=== PATIENT | female | born 1980 | race Caucasian/White ===

== ENCOUNTER 2019-04-14 15:15 | Inpatient (IN) | payer OTHER ==
[2019-04-14] MEDS ORDERED: CEFAZOLIN 2 GM/50 ML (PMX) 50 ML IVPB (16:00)
[2019-04-14] MEDS ORDERED: MISOPROSTOL 200 MCG TAB PR ×2 (16:00→20:30)
[2019-04-14] MEDS ORDERED: METHYLERGONOVINE 0.2 MG INJ IM ×2 (16:00→20:30)
[2019-04-14] MEDS ORDERED: OXYTOCIN 30 UNITS/LR 500 ML IV (16:00)
[2019-04-14] MEDS ORDERED: CARBOPROST 250 MCG INJ IM ×2 (16:00→20:30)
[2019-04-14 17:04] LABS: ADD MAN DIFF? NO
[2019-04-14 17:06] LABS: WHITE BLOOD COUNT 9.5 10^3/ul (4.8-10.8)
[2019-04-14 17:06] LABS: BASOPHILS % 0.3 % (0.0-2.0); EOSINOPHILS % 0.2 % (0.0-7.0); HEMOGLOBIN 13.7 g/dl (12.0-16.0); LYMPHOCYTES # 1.2 10^3/ul (0.8-2.9); LYMPHOCYTES % 12.8 % (15.0-51.0); MEAN CORPUSCULAR HEMOGLOBIN 32.5 pg (29.0-33.0); MEAN CORPUSCULAR HGB CONC 34.3 g/dl (32.0-37.0); MEAN CORPUSCULAR VOLUME 94.8 fl (82.0-101.0); MEAN PLATELET VOLUME 9.7 fl (7.4-10.4); MONOCYTE # 0.5 10^3/ul (0.3-0.9); MONOCYTES % 5.1 % (0.0-11.0); NEUTROPHIL # 7.4 10^3/ul (1.6-7.5); NEUTROPHILS % 77.5 % (39.0-77.0); PLATELET COUNT 191 10^3/UL (140-415); RED BLOOD COUNT 4.22 10^6/ul (4.20-5.40)
[2019-04-14] MEDS: LACTATED RINGER'S 1,000 ML IV (17:22)
[2019-04-14 17:27] LABS: INR 0.97
[2019-04-14 17:28] LABS: PARTIAL THROMBOPLASTIN TIME 30.4 Sec (23.0-35.0)
[2019-04-14] MEDS ORDERED: KETOROLAC 30 MG INJ IV (18:00)
[2019-04-14] MEDS ORDERED: FENTAnyl 2MCG/ML-ROPIV 0.2% 100 ML BAG EPI (18:00)
[2019-04-14] MEDS ORDERED: NALOXONE (0.4 MG/ML) INJ IV (18:00)
[2019-04-14] MEDS ORDERED: ALBUTEROL 0.083% (NEB) 2.5 MG/3 ML AMP HHN (18:00)
[2019-04-14] MEDS ORDERED: ONDANSETRON 4 MG INJ IV ×2 (18:00)
[2019-04-14] MEDS ORDERED: HYDROmorphONE 0.5 MG/0.5 ML SYG IV ×2 (18:00)
[2019-04-14] MEDS ORDERED: HYDROmorphONE 1 MG/5 ML IV SYRINGE IV ×2 (18:00)
[2019-04-14] MEDS ORDERED: FENTAnyl 50 MCG/ML VIAL IV ×2 (18:00)
[2019-04-14] MEDS ORDERED: METOCLOPRAMIDE 10 MG INJ IV (18:00)
[2019-04-14] MEDS ORDERED: DIPHENHYDRAMINE 50 MG INJ IV ×2 (18:00)
[2019-04-14] MEDS ORDERED: morphine SULFATE/PF (10 MG/10 ML) INJ (18:01)
[2019-04-14] MEDS ORDERED: EPHEDrine 25 MG/5 ML SYG (18:01)
[2019-04-14] MEDS ORDERED: PHENYLephrine (100 MCG/ML) 10ML SYG (18:01)
[2019-04-14] MEDS ORDERED: OXYTOCIN 30 UNITS/LR 500 ML BAG IV (18:01)
[2019-04-14] MEDS: KETOROLAC 30 MG INJ IV (19:28)
[2019-04-14] MEDS: OXYTOCIN 30 UNITS/LR 500 ML IV ×2 (19:30→23:17)
[2019-04-14] MEDS ORDERED: LANOLIN HPA 1 PKT TOP (20:30)
[2019-04-14] MEDS ORDERED: OXYCODONE/ACETAMINOPHEN (5/325) TAB PO (20:30)
[2019-04-14] MEDS ORDERED: NACL 0.9% 3 ML SYG IV (20:30)
[2019-04-14] MEDS: CEFAZOLIN 2 GM/50 ML (PMX) 50 ML IVPB (23:22)
[2019-04-15] MEDS: OXYTOCIN 30 UNITS/LR 500 ML IV (04:20)
[2019-04-15] MEDS: KETOROLAC 30 MG INJ IV ×2 (04:44→12:11)
[2019-04-15] MEDS: IBUPROFEN 600 MG TAB PO ×4 (07:00→18:26)
[2019-04-15 08:07] LABS: ADD MAN DIFF? NO
[2019-04-15 08:12] LABS: BASOPHILS % 0.2 % (0.0-2.0); EOSINOPHILS % 0.2 % (0.0-7.0); HEMATOCRIT 30.9 % (37.0-47.0); HEMOGLOBIN 10.3 g/dl (12.0-16.0); LYMPHOCYTES # 1.2 10^3/ul (0.8-2.9); LYMPHOCYTES % 11.6 % (15.0-51.0); MEAN CORPUSCULAR HGB CONC 33.3 g/dl (32.0-37.0); MEAN PLATELET VOLUME 9.7 fl (7.4-10.4); MONOCYTE # 0.6 10^3/ul (0.3-0.9); MONOCYTES % 6.2 % (0.0-11.0); NEUTROPHILS % 80.3 % (39.0-77.0); PLATELET COUNT 155 10^3/UL (140-415); RED BLOOD COUNT 3.22 10^6/ul (4.20-5.40); RED CELL DISTRIBUTION WIDTH 12.9 % (11.5-14.5)
[2019-04-15] MEDS: CEFAZOLIN 2 GM/50 ML (PMX) 50 ML IVPB ×2 (12:10→18:27)
[2019-04-15 16:14] LABS: RAPID PLASMA REAGIN NONREACTIVE (NR)
[2019-04-15 18:12] LABS: RHOGAM PROFILE 1 1
[2019-04-15] MEDS: OXYCODONE/ACETAMINOPHEN (5/325) TAB PO (23:08)
[2019-04-16] MEDS: IBUPROFEN 600 MG TAB PO ×4 (00:38→18:01)
[2019-04-17] MEDS: IBUPROFEN 600 MG TAB PO ×3 (00:43→12:13)
[2019-04-17 08:47] LABS: HEMATOCRIT 30.5 % (37.0-47.0)
== END 2019-04-17 14:40 | disposition home or self-care (01) | DRG 785 ==
LOC: L-D 15:15 → PP1 21:17
PROVIDERS: Obstetrics & Gynecology
PROC: 10D00Z1 Extraction of Products of Conception, Low, Open Approach (ICD-10-PCS; principal; 2019-04-14 17:00)
PROC: 0UB70ZZ Excision of Bilateral Fallopian Tubes, Open Approach (ICD-10-PCS; 2019-04-14 17:00)
DX: O34.211 Maternal care for low transverse scar from previous cesarean delivery (principal); Z3A.39 39 weeks gestation of pregnancy; Z37.0 Single live birth; Z30.2 Encounter for sterilization
CPT/HCPCS: 85014; 85018; 85025; 85610; 85730; 86592; 86850; 86870; 86885; 86900; 86901; 88302; 99464